=== PATIENT | male | born 1960 | race Caucasian/White ===

== ENCOUNTER 2016-02-23 07:45 | Emergency (ER) | payer SELFPAY ==
[~2016-02-23] VITALS: Ht 193 cm; Wt 120.0 kg
[2016-02-23 07:47] VITALS: BP 186/91; PULSE 75; RESP 15; TEMP 97.9; O2SAT 98
[2016-02-23 07:55] VITALS: BP 186/91; PULSE 75; RESP 16; TEMP 97.9; O2SAT 98
--- NOTE | 2016-02-23 08:05 | PD ---
HPI Chief Complaint: Flank/Kidney Pain Time Seen by Provider: 07:51 Travel History International Travel<30 days: No Contact w/Intl Traveler<30days: No Traveled to known affect area: No History of Present Illness HPI This patient complains of right flank pain. Started at 3 AM this morning. Duration is 4 hours. Severity is moderate. He denies fever or injury. He has history of multiple kidney stones and this feels similar. His last was 6 months ago. No alleviating factors. PFSH Social History Alcohol Use: No Tobacco Use: No Substance Use: No Allergies-Medications (Allergen,Severity, Reaction): Coded Allergies: Toradol (Verified Allergy, Severe, Anaphylaxis, 02/23/16) Penicillin (Verified Allergy, Intermediate, Nausea/Vomiting, 02/23/16) Reported Meds & Prescriptions Reported Meds & Active Scripts Active Reported Zofran (Ondansetron HCl) 4 Mg Tab 4 Mg PO Q6HR PRN Flomax (Tamsulosin HCl) 0.4 Mg Cap 0.4 Mg PO HS Review of Systems General / Constitutional: No: Fever Eyes: No: Visual changes HENT: No: Headaches Cardiovascular: No: Chest Pain or Discomfort Respiratory: No: Shortness of Breath Gastrointestinal: No: Abdominal Pain Genitourinary: Positive: Flank Pain, No: Dysuria Musculoskeletal: No: Pain Skin: No Rash Neurologic: No: Weakness Psychiatric: No: Depression Endocrine: No: Polydipsia Hematologic/Lymphatic: No: Easy Bruising Physical Exam Narrative GENERAL: Well-nourished, well-developed patient with right flank pain. SKIN: Warm and dry. HEAD: Atraumatic. Normocephalic. EYES: Pupils equal and round. No scleral icterus. No injection or drainage. ENT: No nasal bleeding or discharge. Mucous membranes pink and moist. NECK: Trachea midline. No JVD. CARDIOVASCULAR: Regular rate and rhythm. No murmur appreciated. RESPIRATORY: No accessory muscle use. Clear to auscultation. Breath sounds equal bilaterally. GASTROINTESTINAL: Abdomen soft, non-tender, nondistended. Hepatic and splenic margins not palpable. MUSCULOSKELETAL: No obvious deformities. No clubbing. No cyanosis. No edema. NEUROLOGICAL: Awake and alert. No obvious cranial nerve deficits. Motor grossly within normal limits. Normal speech. PSYCHIATRIC: Appropriate mood and affect; insight and judgment normal. Data Data Last Documented VS Vital Signs Date Time Temp Pulse Resp B/P Pulse Ox O2 Delivery O2 Flow Rate FiO2 02/23/16 07:59 75 16 02/23/16 07:55 97.9 186/91 98 Orders Urinalysis - C+S If Indicated (02/23/16 08:02) Ct Abd/Pel W/O Iv Contrast (02/23/16 ) Labs Laboratory Tests Test 02/23/16 08:07 Urine Color YELLOW Urine Turbidity CLEAR Urine pH 5.5 Urine Specific [place] 1.017 Urine Protein NEG mg/dL Urine Glucose (UA) NEG mg/dL Urine Ketones NEG mg/dL Urine Occult Blood LARGE Urine Nitrite NEG Urine Bilirubin NEG Urine Urobilinogen LESS THAN 2.0 MG/DL Urine Leukocyte Esterase NEG Urine RBC /hpf Urine WBC LESS THAN 1 /hpf Urine Mucus FEW /lpf Microscopic Urinalysis Comment CULT NOT INDICATED MDM Medical Decision Making Medical Screen Exam Complete: Yes Emergency Medical Condition: Yes Medical Record Reviewed: Yes Differential Diagnosis Kidney stone, nephritis, sciatica Narrative Course I have reviewed the patient's electronic medical record. Patient is medical care to the [place]. He is never been to this ER before. Urinalysis is clean CT of abdomen and pelvis shows a small 1-2 mm mid right ureteral stone with no hydronephrosis Patient states that he drove himself and couldn't get a ride and therefore shouldn't get pain medicine Prescription written for Percocet He will follow-up with his [place] urologist Diagnosis Primary Impression: Kidney stone on right side Additional Instructions: The patient was advised to follow up with their physician and return if they worsen. The patient was warned about potential sedation for the medications they will receive on prescription. Med/Other Pt SpecificInfo: Prescription(s) given Disposition: 01 DISCHARGE HOME Condition: Stable Ross Hawkins MD Feb 23, 2016 08:05
[2016-02-23] MEDS ORDERED: TAMS5CAP PO (08:06)
[2016-02-23] MEDS ORDERED: ZOFR4TAB PO (08:06)
[2016-02-23 08:20] LABS: BLOOD, URINE LARGE (NEG); COMMENT (UR) CULT NOT INDICATED; CULTURE IF INDICATED CULT NOT INDICATED; GLUCOSE,URINE NEG (NEG); KETONE, URINE NEG (NEG); MUCUS URINE FEW /lpf (OCC); NITRITE,URINE NEG (NEG); PH, URINE 5.5 (5.0-8.5); URINE COLOR YELLOW (YELLW/STRAW)
--- NOTE | 2016-02-23 09:03 | RADRPT ---
EXAM DATE/TIME: 02/23/2016 08:27 [facility] COMPARISON: No previous studies available for comparison. INDICATIONS : Right flank pain. ORAL CONTRAST: No oral contrast ingested. RADIATION DOSE: 30.77 CTDIvol (mGy) MEDICAL HISTORY : Renal calculi. SURGICAL HISTORY : Cholecystectomy. Hernia repair. ENCOUNTER: Initial ACUITY: 1 day PAIN SCALE: 6/10 LOCATION: Right flank TECHNIQUE: Volumetric scanning of the abdomen and pelvis was performed. Using automated exposure control and ad justment of the mA and/or kV according to patient size, radiation dose was kept as low as reasonably achievable to obtain optimal diagnostic quality images. FINDINGS: LOWER LUNGS: The visualized lower lungs are clear. LIVER: Homogeneous density without lesion. There is no dilation of the biliary tree. Cholecystectomy clips. SPLEEN: Normal size without lesion. PANCREAS: Within normal limits. KIDNEYS: Normal in size and shape. There is no mass, or hydronephrosis. There isolated renal calculi bilatera lly within the kidneys. There is a 1-2 mm calcification at the level the right L3 transverse process could be a small intraureteral stone without any post obstructive findings. On the axial images it al most appears to be within the wall of the ureter. ADRENAL GLANDS: Within normal limits. VASCULAR: There is no aortic aneurysm. BOWEL/MESENTERY: The stomach, small bowel, and colon demonstrate no acute abnormality. There is no free intraperitone al air or fluid. ABDOMINAL WALL: Within normal limits. RETROPERITONEUM: There is no lymphadenopathy. BLADDER: No wall thickening or mass. REPRODUCTIVE: Within normal limits. INGUINAL: There is no lymphadenopathy or hernia. MUSCULOSKELETAL: Within normal limits for patient age. CONCLUSION: There are individual isolated stones in the kidneys but there is an additional very small 1-2 mm ston e at the periphery of the mid right ureter without any definite evidence of obstruction. Ozzie Hernández MD on February 23, 2016 at 8:57 Board Certified Radiologist. This report was verified electronically.
[2016-02-23] MEDS ORDERED: PERC5TAB12 PO (09:56)
== END 2016-02-23 10:04 | disposition home or self-care (01) ==
LOC: NEPC 07:45
DX: N20.1 Calculus of ureter (principal); Z87.442 Personal history of urinary calculi
CPT/HCPCS: 74176; 81001